=== PATIENT | male | born 1945 ===

== ENCOUNTER 2016-12-05 12:30 | Outpatient (CLI) | payer OTHER ==
[2016-12-05 16:32] LABS: ALT (SGPT) 16 U/L (8-55); AST (SGOT) 18 U/L (5-34); Alkaline Phosphatase 59 U/L (40-150); Anion Gap 13 mmol/L (10-20); BUN (Urea Nitrogen) 23 mg/dL (8.4-25.7); Bilirubin, Total 0.3 mg/dL (0.2-1.2); Calc. Creatinine Clearance 0 mL/min (70-130); Calcium 8.9 mg/dL (7.8-10.44); Carbon Dioxide 26 mmol/L (23-31); Cardiac Risk 3.4 (Less than 4.5); Chloride 106 mmol/L (98-107); Cholesterol 140 mg/dl (< 200 Desired); Estimated GFR-MDRD 60; Globulin 2.6 g/dL (2.4-3.5); Glucose 105 mg/dL (80-115); HDL Cholesterol 41 mg/dL (>60 Neg Risk); LDL Cholesterol, Calculated 85 mg/dL; Potassium 5.2 mmol/L (3.5-5.1); Protein, Total 6.6 g/dL (5.8-8.1); Sodium 140 mmol/L (136-145); Triglycerides 68 mg/dL (Less than 150)
[2016-12-05 17:22] LABS: PSA-Asymptomatic (SCREENING) 3.72 ng/mL (0-4.0); Thyroid Stimulating Hormone 2.9728 uIU/mL (0.35-4.94)
[2016-12-05 17:36] LABS: Hemoglobin 12.7 g/dL (14.0-18.0); Mean Corpuscular HGB CONC 33.3 g/dL (32.0-36.0); Mean Corpuscular Hemoglobin 32.7 pg (27.0-31.0); Mean Platelet Volume 7.7 fL (7.4-10.4); Platelet Count 242 thou/uL (130-400); RBC Distribution Width 12.5 % (11.5-14.5); Red Blood Cell (RBC) Count 3.88 mill/uL (4.70-6.10)
[2016-12-05 17:37] LABS: Eosinophils 3 % (0-10); Lymphocytes 39 % (21-51); MDiff Complete? YES; Monocytes 6 % (0-10); Neutrophil 52 % (42-75)
== END 2016-12-05 12:31 | disposition home or self-care (01) ==
LOC: LABLEX 12:30
PROVIDERS: ATTEND Family Medicine
DX: Z12.5 Encounter for screening for malignant neoplasm of prostate (principal); I42.9 Cardiomyopathy, unspecified; R14.0 Abdominal distension (gaseous); R10.84 Generalized abdominal pain; I10 Essential (primary) hypertension
CPT/HCPCS: 80053; 80061; 84443; 85025; G0103